=== PATIENT | female | born 1990 | race Two or more races ===

== ENCOUNTER 2017-08-11 14:37 | Inpatient (IN) | payer OTHER ==
[~2017-08-11] VITALS: Ht 157.5 cm; Wt 70.7 kg
[2017-08-11] VITALS (43 sets, daily range): BP systolic 81–139; BP diastolic 50–67
[2017-08-11] MEDS ORDERED: PRENTAB9 PO (15:00)
[2017-08-11] MEDS ORDERED: LR 1,000 ML IV SCH (18:48)
[2017-08-11] MEDS ORDERED: PROMETHAZINE INJ 25 MG/ML VIAL (J2550) IV ONE (19:00)
[2017-08-11] MEDS ORDERED: NALBUPHINE HCL 10 MG/ML AMP (J2300) IV ONE (19:00)
[2017-08-11 19:36] LABS: MEAN CORPUSCULAR HEMOGLOBIN 31.2 pg (27.0-33.0); MEAN CORPUSCULAR HGB CONC 35.3 g/dl (32.0-36.5); MEAN CORPUSCULAR VOLUME 88.3 fl (80.0-96.0); PLATELET COUNT, AUTOMATED 166 10^3/uL (150-450); RED CELL DISTRIBUTION WIDTH 12.2 % (11.5-14.5); WHITE BLOOD COUNT 19.8 10^3/uL (4.0-10.0)
[2017-08-11] MEDS ORDERED: FENTANYL 2MCG/ML ROPIVACAINE 0.2% IN 0.9% NACL 200ML IVBAG As Ordered ONE (21:33)
[2017-08-11] MEDS ORDERED: diphenhydrAMINE INJ 50MG/ML VIAL (J1200) IV PRN (22:30)
[2017-08-11] MEDS ORDERED: ePHEDrine SULFATE 25 MG/5 ML(5MG/ML) SYRINGE IV PRN (22:30)
[2017-08-11] MEDS ORDERED: EPIDURAL COMMENT XX SCH (22:30)
[2017-08-11] MEDS ORDERED: FENTANYL/ROPIVACAINE/NACL BAG 200 ML EPIDURAL SCH (22:30)
[2017-08-11] MEDS ORDERED: EPIDURAL/PCA KEYS XX PRN (22:30)
[2017-08-11] MEDS ORDERED: LACTATED RINGER'S 1000 ML IV PRN (22:30)
[2017-08-11] MEDS ORDERED: NALOXONE INJ 0.4 MG/1 ML VIAL (J2310) IV PRN (22:30)
[2017-08-11] MEDS ORDERED: REFRIGERATOR IV KEYS XX PRN (22:30)
[2017-08-11] MEDS ORDERED: ONDANSETRON 4MG/2ML VIAL (J2405) IV PRN (22:30)
[2017-08-11] MEDS ORDERED: OXYTOCIN 30 UNITS IN 0.9% NaCl 500ML IV BAG (J2590) As Ordered ONE (23:19)
[2017-08-12] VITALS (19 sets, daily range): BP systolic 89–120; BP diastolic 51–66
[2017-08-12 03:15] LABS: CORD GAS ABE V -9.7; CORD GAS HCO3 A 20.5 MEQ/L; CORD GAS HCO3 V 19.8 MEQ/L; CORD GAS O2 SAT A 17.8 %; CORD GAS O2 SAT V 46.1 %; CORD GAS PCO2 A 78.8 mmHg; CORD GAS PCO2 V 57.1 mmHg; CORD GAS PH A 7.033 UNITS; CORD GAS PH V 7.158 UNITS; CORD GAS PO2 A 15.1 mmHg; CORD GAS PO2 V 25.5 mmHg; CORD GAS SBC A 13.7 MEQ/L; CORD GAS SBC V 15.8 MEQ/L; CORD GAS TCO2 A 22.9 MEQ/L; CORD GAS TCO2 V 21.6 MEQ/L
[2017-08-12] MEDS ORDERED: OXYTOCIN DRIP 30 UNITS in APPROPRIATE DILUENT 1 EA IV SCH (03:43)
[2017-08-12] MEDS ORDERED: RHOGAM 300 MCG (1500 IU) INJ (J2790) IM SCH (03:45)
[2017-08-12] MEDS ORDERED: DIBUCAINE 1% OINTMENT 30GM TOP PRN (03:45)
[2017-08-12] MEDS ORDERED: MEASLES,MUMPS,RUBELLA VACCINE INJ (MMR-II) (90707) SC SCH (03:45)
[2017-08-12] MEDS ORDERED: OXYTOCIN INJ 10 UNITS/ML VIAL (J2590) IV ONE (03:45)
[2017-08-12] MEDS ORDERED: ACETAMINOPHEN 500 MG TAB PO PRN (03:45)
[2017-08-12] MEDS ORDERED: DOCUSATE SODIUM 100 MG CAP PO PRN (03:45)
[2017-08-12] MEDS ORDERED: ANUSOL HC CREAM 30GM TOP PRN (03:45)
[2017-08-12] MEDS ORDERED: METHYLERGONOVINE MALEATE 0.2 MG TAB PO PRN (03:45)
[2017-08-12] MEDS ORDERED: MOM 30ML SUSPENSION UDC PO PRN (03:45)
[2017-08-12] MEDS: AMPICILLIN SOD/SULBACTAM SOD 3 GM in D5W MINI-BAG PLUS 100 ML IV SCH ×3 (07:56→18:54)
[2017-08-12] MEDS: PRENATAL VITAMINS CHEWABLE TABLET PO SCH (08:28)
[2017-08-12] MEDS ORDERED: OXYTOCIN INJ 10 UNITS/ML VIAL (J2590) As Ordered ONE (11:29)
[2017-08-12] MEDS: IBUPROFEN 800 MG TAB PO PRN (16:00)
--- NOTE | 2017-08-12 21:30 | IPN ---
DATE: 08/12/2017 This lady low vacuum spontaneous vaginal delivery live male infant. she spiked a temperature 100.6. She did not appear febrile. However, she had prolonged rupture of membranes, and had a difficult long labor. On examination today we had discussed phlebitis, cystitis, mastitis, metritis and cellulitis, exercise, pain management, perineal, breast and wound care. Her vital signs this morning, her blood pressure is 99/57, respirations 16, pulse is 80 and noted by the nurse, the temperature is 100.6. The rest examination is unremarkable. She is normocephalic, atraumatic. Neck: Full range of motions. Pupils equal and reactive to light. Distal pulses symmetric. No evidence of deep venous thrombosis (DVT), pulmonary embolism (PE) or superficial phlebitis. Lungs are clear bilaterally to bases, no wheezes or rhonchi. Uterus is nontender, 2 below. Lochia is moderate. Perineum is healing. She has no rashes, lesions or pruritus. No arthralgia or myalgia. No complaints of cough, wheeze, shortness of breath or dyspnea on exertion. No chest pain, no shortness of breath, neuro complete. No incontinency or frequency. We are planning on maintaining her antibiotic coverage and Tylenol for her fever, a 24 hour course is recommended, after which time it will be discontinued. This was explained to the patient. All questions were anwered.
--- NOTE | 2017-08-12 21:57 | DN ---
DATE: 08/12/2017 This lady is a 27-year-old 1, para 1 admitted in spontaneous labor at 39 and 4 weeks of gestation. She had Nubain for pain control followed up by an epidural. At full dilatation she had some persistent bradycardia with recovery with contractions and it was elected because of persistent bradycardia to do a low vacuum delivery. With the Durán catheter in the bladder draining clear urine, fully dilated in the OA position, the vacuum was applied. One pull to the perineum at 500 mmHg. This was then removed and the patient then spontaneously delivered a live male infant 6 pounds 14 ounces, 3130 grams, scores of 8 and 9 at 1 and 5 minutes, respectively. Dr. Mensah was called for resuscitative measures. It was found that the cord was around the neck tight times two and around the body times one. The arterial pH was 7.03, base excess -12, venous pH 7.15, base excess -9.7. She sustained a first-degree tear with large varicose veins underneath the vaginal mucosa, the first-degree tear was oversewn in the usual fashion. The placenta delivered spontaneously thereafter, three-vessel cord, membranes and tissues intact, and the uterus contracted well down under Pitocin. Further examination of the vagina anteroposterior and lateral moreira were normal. Sphincter digitally was found to be intact, no evidence of mucosal tears in. In summary we have a term gestation with persistent bradycardia, low vacuum to the perineum, delivered spontaneously a live male .
[2017-08-13] MEDS: AMPICILLIN SOD/SULBACTAM SOD 3 GM in D5W MINI-BAG PLUS 100 ML IV SCH ×2 (01:47→06:11)
[2017-08-13] MEDS: IBUPROFEN 800 MG TAB PO PRN (01:47)
[2017-08-13 02:00] VITALS: BP 92/53
[2017-08-13 06:00] VITALS: BP 111/64
[2017-08-13 06:50] LABS: MEAN CORPUSCULAR HEMOGLOBIN 31.1 pg (27.0-33.0); MEAN CORPUSCULAR HGB CONC 34.2 g/dl (32.0-36.5); MEAN CORPUSCULAR VOLUME 90.9 fl (80.0-96.0); PLATELET COUNT, AUTOMATED 136 10^3/uL (150-450); RED CELL DISTRIBUTION WIDTH 12.5 % (11.5-14.5); WHITE BLOOD COUNT 16.6 10^3/uL (4.0-10.0)
[2017-08-13] MEDS: PRENATAL VITAMINS CHEWABLE TABLET PO SCH (07:47)
[2017-08-13 17:44] VITALS: BP 104/58
[2017-08-14 06:05] VITALS: BP 115/65
[2017-08-14] MEDS: PRENATAL VITAMINS CHEWABLE TABLET PO SCH (07:52)
--- NOTE | 2017-08-14 08:06 | IPNPDOC ---
Progress Note Date of Service The patient was seen on 08/14/17 at 08:02. Progress Note Day 2 Audrey is a 27 y/o now s/p VAVD on 08/[address] Sen. Noted PP Temperature of 100.6F and was started on unasyn for 24hr. No noted fevers since then. Reports bottle feeding by choice, and decreasing lochia. No major complaints. O: VSS, afebrile. Gen: A&Ox3, NAD ABD: Fundus @ U-2cm A/P: Audrey is a 27y/o [id number] s/p VAVD doing well on day 2. Vitals wnl, hemodynamically stable with no evidence of infection. - Discharge home today with routine 6wk follow-up - Discharge meds given: motrin, tylenol, colace, lanolin, dibucaine - Discussed benefits of breast feeding at length, informed her there is a [employer] sales consultant at [facility] if needed - Discussed return precautions at length - Uncertain of contraception desired, can re-address at pp visit Dr. Jorje Santos MD [facility] VS, I&O, 24H, Fishbone Vital Signs/I&O Vital Signs Date Time Temp Pulse Resp B/P (MAP) Pulse Ox O2 Delivery O2 Flow Rate FiO2 08/14/17 06:05 97.8 60 16 115/65 (82) 98 Room Air JORJE JEAN BAPTISTE MD Aug 14, 2017 08:06
[2017-08-14] MEDS ORDERED: DIBU10OI TOP (08:26)
[2017-08-14] MEDS ORDERED: COLA100C5 PO (08:26)
[2017-08-14] MEDS ORDERED: ACET50TA PO (08:26)
[2017-08-14] MEDS ORDERED: IBUP-1114 PO (08:26)
== END 2017-08-14 11:35 | disposition home or self-care (01) | DRG 775 ==
LOC: M LDO 14:37 → M LDI 18:49 → M OBS 08-12 06:15
PROVIDERS: ADMIT Obstetrics & Gynecology; ATTEND Obstetrics & Gynecology
PROC: 10D07Z6 Extraction of Products of Conception, Vacuum, Via Natural or Artificial Opening (ICD-10-PCS; principal; 2017-08-12)
PROC: 0HQ9XZZ Repair Perineum Skin, External Approach (ICD-10-PCS; 2017-08-12)
DX: O76 Abnormality in fetal heart rate and rhythm complicating labor and delivery (principal); Z37.0 Single live birth; Z3A.39 39 weeks gestation of pregnancy; Z79.899 Other long term (current) drug therapy; O69.1XX0 Labor and delivery complicated by cord around neck, with compression, not applicable or unspecified; O70.0 First degree perineal laceration during delivery; R50.82 Postprocedural fever

== ENCOUNTER → 2017-09-26 | Outpatient (REF) | payer OTHER ==
[~2017-09-26] MED LIST: ACET50TA PO; COLA100C5 PO; DIBU10OI TOP; IBUP-1114 PO; PRENTAB9 PO
== END ==
LOC: M SFHCLERA 10:36
PROVIDERS: ATTEND Nurse Practitioner Family
DX: J02.9 Acute pharyngitis, unspecified (principal)